=== PATIENT | female | born 1990 | race Caucasian/White ===

== ENCOUNTER 2017-05-18 15:26 | Emergency (ER) | payer OTHER ==
[~2017-05-18] VITALS: Ht 154.9 cm; Wt 61.9 kg
[2017-05-18 15:34] VITALS: BP 116/74
== END 2017-05-18 16:57 | disposition home or self-care (01) ==
LOC: ED 15:26
DX: J02.9 Acute pharyngitis, unspecified (principal)

== ENCOUNTER 2017-08-08 15:37 | Emergency (ER) | payer OTHER ==
[~2017-08-08] VITALS: Ht 154.9 cm; Wt 61.2 kg
[2017-08-08 16:04] VITALS: Ht 154.9 cm; Wt 61.2 kg
[2017-08-08 17:06] VITALS: BP 119/72
== END 2017-08-08 18:17 | disposition home or self-care (01) ==
LOC: ED 15:37
DX: R11.2 Nausea with vomiting, unspecified (principal); K12.0 Recurrent oral aphthae
CPT/HCPCS: Q0162

== ENCOUNTER 2017-08-15 07:28 | Emergency (ER) | payer OTHER ==
[~2017-08-15] VITALS: Ht 154.9 cm; Wt 61.7 kg
[2017-08-15 07:36] VITALS: Ht 154.9 cm; Wt 61.7 kg
[2017-08-15 09:42] VITALS: BP 113/79
== END 2017-08-15 09:42 | disposition home or self-care (01) ==
LOC: ED 07:28
DX: N76.0 Acute vaginitis (principal)
CPT/HCPCS: 87491; 87591

== ENCOUNTER 2017-09-02 20:24 | Emergency (ER) | payer OTHER ==
[~2017-09-02] VITALS: Ht 154.9 cm; Wt 62.6 kg
[2017-09-02 20:33] VITALS: Ht 154.9 cm; Wt 62.6 kg
[2017-09-02 21:20] VITALS: BP 122/72
[2017-09-02 22:47] LABS: UA SPECIFIC GRAVITY >=1.030 (1.005-1.035); microscopic required? YES; urine erythrocyte 3+ (NEGATIVE)
== END 2017-09-02 22:55 | disposition home or self-care (01) ==
LOC: ED 20:24
PROVIDERS: Emergency Medicine
DX: N39.0 Urinary tract infection, site not specified (principal)

== ENCOUNTER 2017-09-12 14:51 | Emergency (ER) | payer OTHER ==
[~2017-09-12] VITALS: Ht 154.9 cm; Wt 62.1 kg
[2017-09-12 15:13] VITALS: BP 111/70; Ht 154.9 cm; Wt 62.1 kg
== END 2017-09-12 17:11 | disposition left against medical advice (07) ==
LOC: ED 14:51
DX: Z53.21 Procedure and treatment not carried out due to patient leaving prior to being seen by health care provider (principal)

== ENCOUNTER 2017-09-16 17:32 | Emergency (ER) | payer OTHER ==
[~2017-09-16] VITALS: Ht 154.9 cm; Wt 61.7 kg
[2017-09-16 17:43] VITALS: BP 102/66; Ht 154.9 cm; Wt 61.7 kg
== END 2017-09-16 19:02 | disposition home or self-care (01) ==
LOC: ED 17:32
DX: J02.8 Acute pharyngitis due to other specified organisms (principal); B34.9 Viral infection, unspecified
CPT/HCPCS: J1885

== ENCOUNTER 2017-11-18 16:32 | Emergency (ER) | payer OTHER ==
[~2017-11-18] VITALS: Ht 154.9 cm; Wt 65.8 kg
[2017-11-18 16:43] VITALS: Ht 154.9 cm; Wt 65.8 kg
[2017-11-18 17:59] LABS: CALCIUM 8.8 mg/dL (8.5-10.1); CARBON DIOXIDE 27.4 mmol/L (21-32); CHLORIDE SERUM 103 mmol/L (98-107); CREATININE SERUM 0.6 mg/dL (0.6-1.0); GFR1 > 60 mL/min; GLUCOSE SERUM 102 mg/dL (74-106); POTASSIUM SERUM 3.9 mmol/L (3.5-5.1); SODIUM SERUM 137 mmol/L (136-145)
[2017-11-18 18:06] LABS: BASOPHIL % 0.6 % (0-2); PLATELET COUNT 232 x10^3mcL (130-400); RED CELL DISTRIBUTION WIDTH 12.8 % (11.5-14.5)
[2017-11-18 18:13] LABS: FREE T4 0.88 ng/dL (0.76-1.46)
[2017-11-18 19:33] VITALS: BP 103/70
== END 2017-11-18 19:33 | disposition home or self-care (01) ==
LOC: ED 16:32
PROVIDERS: Emergency Medicine
DX: L98.9 Disorder of the skin and subcutaneous tissue, unspecified (principal)
CPT/HCPCS: 36415; 84439

== ENCOUNTER 2018-02-04 11:26 | Emergency (ER) | payer OTHER ==
[~2018-02-04] VITALS: Ht 154.9 cm; Wt 64.4 kg
[2018-02-04 11:34] VITALS: Ht 154.9 cm; Wt 64.4 kg
[2018-02-04 12:10] LABS: BASOPHIL % 0.4 % (0-2); PLATELET COUNT 247 x10^3mcL (130-400)
[2018-02-04 12:22] LABS: CARBON DIOXIDE 27.5 mmol/L (21-32); CHLORIDE SERUM 103 mmol/L (98-107); CREATININE SERUM 0.7 mg/dL (0.6-1.0); GFR1 > 60 mL/min; GLUCOSE SERUM 93 mg/dL (74-106); POTASSIUM SERUM 3.5 mmol/L (3.5-5.1); SODIUM SERUM 134 mmol/L (136-145)
[2018-02-04 12:25] LABS: microscopic required? NO
[2018-02-04 12:34] LABS: UA SPECIFIC GRAVITY <=1.005 (1.005-1.035); urine erythrocyte NEGATIVE (NEGATIVE)
[2018-02-04 14:02] VITALS: BP 102/58
== END 2018-02-04 14:02 | disposition home or self-care (01) ==
LOC: ED 11:26
PROVIDERS: Emergency Medicine
DX: R10.2 Pelvic and perineal pain (principal); R59.0 Localized enlarged lymph nodes; R42 Dizziness and giddiness; R11.0 Nausea
CPT/HCPCS: 36415; 87491; 87591; J0696; J1885; Q0162

== ENCOUNTER 2018-04-14 16:24 | Emergency (ER) | payer OTHER ==
[~2018-04-14] VITALS: Ht 154.9 cm; Wt 64.0 kg
[2018-04-14 16:31] VITALS: BP 142/72
[2018-04-14 17:06] LABS: BASOPHIL % 0.9 % (0-2); PLATELET COUNT 287 x10^3mcL (130-400); RED CELL DISTRIBUTION WIDTH 12.5 % (11.5-14.5)
== END 2018-04-14 18:20 | disposition home or self-care (01) ==
LOC: ED 16:24
PROVIDERS: Specialist
DX: N93.9 Abnormal uterine and vaginal bleeding, unspecified (principal); Z98.890 Other specified postprocedural states
CPT/HCPCS: J1885

== ENCOUNTER 2018-09-16 21:04 | Emergency (ER) | payer OTHER ==
[~2018-09-16] VITALS: Ht 154.9 cm; Wt 67.1 kg
[2018-09-16 21:33] VITALS: Ht 154.9 cm; Wt 67.1 kg
[2018-09-16 23:17] VITALS: BP 112/70
== END 2018-09-16 23:17 | disposition home or self-care (01) ==
LOC: ED 21:04
DX: K12.0 Recurrent oral aphthae (principal)

== ENCOUNTER 2018-12-03 09:01 | Emergency (ER) | payer OTHER ==
[~2018-12-03] VITALS: Ht 154.9 cm; Wt 65.3 kg
[2018-12-03 09:03] VITALS: Ht 154.9 cm; Wt 65.3 kg
[2018-12-03 10:29] LABS: BASOPHIL % 0.5 % (0-2); PLATELET COUNT 253 x10^3mcL (130-400); RED CELL DISTRIBUTION WIDTH 12.9 % (11.5-14.5)
[2018-12-03 10:31] LABS: CALCIUM 9.4 mg/dL (8.5-10.1); CARBON DIOXIDE 30.4 mmol/L (21-32); CHLORIDE SERUM 104 mmol/L (98-107); CREATININE SERUM 0.8 mg/dL (0.6-1.0); GFR1 > 60 mL/min; GLUCOSE SERUM 92 mg/dL (74-106); POTASSIUM SERUM 3.8 mmol/L (3.5-5.1); SODIUM SERUM 141 mmol/L (136-145)
[2018-12-03 10:36] LABS: ALBUMIN 4.3 g/dL (3.4-5.0); ALKALINE PHOSPHATASE 75 U/L (46-116); ALT/SGPT 29 U/L (14-59); AST/SGOT 13 U/L (15-37); BILIRUBIN TOTAL 0.5 mg/dL (0.20-1.00); LIPASE 250 IU/L (73-393); TOTAL PROTEIN, SERUM 7.8 g/dL (6.4-8.2)
[2018-12-03 10:57] LABS: AMYLASE 151 U/L (25-115)
[2018-12-03 13:10] VITALS: BP 120/65
== END 2018-12-03 13:10 | disposition home or self-care (01) ==
LOC: ED 09:01
PROVIDERS: Specialist
DX: N83.202 Unspecified ovarian cyst, left side (principal); N83.201 Unspecified ovarian cyst, right side
CPT/HCPCS: 87491; 87591; J1885; J7030